=== PATIENT | female | born 1950 | race Caucasian/White ===

== ENCOUNTER 2023-12-22 09:00 | Outpatient (CLI) | payer MEDICARE, OTHER | END 2023-12-22 09:01 | disposition home or self-care (01) | LOC: BICMAMMO 09:00 | PROVIDERS: ATTEND Nurse Practitioner Family | DX: N63.21 Unspecified lump in the left breast, upper outer quadrant (principal); Z85.3 Personal history of malignant neoplasm of breast | CPT/HCPCS: 76642; 77065; G0279 ==